=== PATIENT | male | born 1955 | race Caucasian/White ===

== ENCOUNTER 2017-11-27 09:19 | Day surgery (SDC) | payer MEDICARE ==
[~2017-11-27 09:19] MED LIST: OFLOXACIN 0.3 % (OCUFLOX) OPTH SOL 5ML OD; PHENYLEPHRINE 2.5% OPHTH SOL 2ML OD; PROPARACAINE 0.5% OPHTH SOL 15ML OD; TROPICAMIDE 1% OPHTH SOLN 2ML OD
[2017-11-27] MEDS ORDERED: fentaNYL 100 MCG/2 ML INJECTION (J3010) As Ordered (11:52)
[2017-11-27] MEDS ORDERED: MIDAZOLAM INJ 2 MG/2 ML VIAL (J2250) As Ordered (11:52)
[2017-11-27] MEDS: POVIDONE-IODINE 5% OPHTH PREP SOL 30ML As Ordered (12:08)
[2017-11-27] MEDS: DUOVISC (0.50ML VISCOAT/0.55ML PROVISC) OPHTH KIT As Ordered (12:12)
[2017-11-27] MEDS: BALANCED SALT IRRIGATION SOLUTION 500ML BAG (FOR OR EYE MACHINE) As Ordered (12:12)
[2017-11-27] MEDS: LIDOCAINE 0.75%/EPINEPHRINE 0.025% IN BSS 1ML SYR INTRACAMERAL (OR ONLY) As Ordered (12:12)
[2017-11-27] MEDS: CEFUROXIME 1MG/0.1ML INTRACAMERAL INJ As Ordered (12:20)
== END 2017-11-27 13:10 | disposition home or self-care (01) ==
LOC: M SDC 09:19
DX: H25.11 Age-related nuclear cataract, right eye (principal); I48.91 Unspecified atrial fibrillation; I10 Essential (primary) hypertension; E78.00 Pure hypercholesterolemia, unspecified; R29.898 Other symptoms and signs involving the musculoskeletal system; M54.9 Dorsalgia, unspecified; R06.02 Shortness of breath; Z79.899 Other long term (current) drug therapy; Z79.01 Long term (current) use of anticoagulants; Z79.82 Long term (current) use of aspirin; Z87.891 Personal history of nicotine dependence; Z96.642 Presence of left artificial hip joint
CPT/HCPCS: 66984